=== PATIENT | female | born 1980 | race Caucasian/White ===

== ENCOUNTER 2017-02-18 21:50 | Emergency (ER) | payer MEDICAID ==
[~2017-02-18] VITALS: Ht 157.5 cm; Wt 65.0 kg
[2017-02-18 23:23] VITALS: BP 112/58
[2017-02-18] MEDS ORDERED: ACETAMINOPHEN 325MG TABLET PO ONE (23:45)
[2017-02-18 23:56] LABS: EOSINOPHILS % 2.8 % (0.0-5.0); HEMATOCRIT. 37.1 % (36.0-48.0); HEMOGLOBIN. 12.6 g/dL (12.0-16.0); LYMPHOCYTES % 38.5 % (20.0-50.0); MEAN CORPUSCULAR HEMOGLOBIN 32.1 pg (28.0-32.0); MEAN CORPUSCULAR HGB CONC 34.1 g/dL (31.0-37.0); MEAN PLATELET VOLUME 7.6 fl (7.4-10.4); MONOCYTES % 7.5 % (2.0-8.0); NEUTROPHILS % 50.2 % (40.0-76.0); PLATELET 301 x1000/uL (130-400); RED BLOOD CELL COUNT 3.94 mill/uL (4.2-5.4); RED CELL DISTRIBUTION WIDTH 12.8 % (11.6-14.6); WHITE BLOOD COUNT 7.9 x1000/uL (4.5-11.0)
[2017-02-19 00:12] LABS: ALANINE AMINOTRANSFERASE 23 IU/L (13-61); ANION GAP 12; CALCIUM 8.6 mg/dL (8.5-10.1); CARBON DIOXIDE 27 mEq/L (21-32); CHLORIDE 107 mEq/L (98-107); INDEX HEMOLYSI 1 (1-3); INDEX ICTERIC 1 (1-4); INDEX LIPEMIC 1 (1-3); LIPASE 195 IU/L (73-393); UREA NITROGEN BLOOD 7 mg/dL (7-21); eGFR > 60 mL/min (>60)
[2017-02-19 00:20] LABS: GLUCOSE URINE NEGATIVE (NEGATIVE); KETONES URINE NEGATIVE (NEGATIVE); LEUKOCYTE ESTERASE URINE NEGATIVE (NEGATIVE); NITRITE URINE NEGATIVE (NEGATIVE); OCCULT BLOOD URINE NEGATIVE (NEGATIVE); PROTEIN URINE NEGATIVE (NEGATIVE); SPECIFIC GRAVITY URINE 1.006 (1.005-1.030)
[2017-02-19 00:21] LABS: HCG SCREEN NEGATIVE
[2017-02-19 00:22] LABS: CLARITY URINE CLEAR (CLEAR); COLOR URINE YELLOW (YELLOW)
[2017-02-19] MEDS ORDERED: HYDROCODONE/ACETAMINOPHEN 5/325MG TABLET PO ONE (01:30)
[2017-02-19] MEDS ORDERED: TRAMADOL 50MG TABLET PO ONE (01:45)
[2017-02-19] MEDS ORDERED: CYCLOBENZAPRINE 10MG TABLET PO ONE (01:45)
== END 2017-02-19 02:37 | disposition home or self-care (01) ==
LOC: ER 21:52
DX: K80.20 Calculus of gallbladder without cholecystitis without obstruction (principal); R51 Headache; R14.0 Abdominal distension (gaseous); M54.5 Low back pain; M54.2 Cervicalgia; F17.200 Nicotine dependence, unspecified, uncomplicated; Z98.890 Other specified postprocedural states
CPT/HCPCS: 36415; 70450; 76700; 80053; 81003; 83690; 84703; 85025; 99285

== ENCOUNTER 2017-04-28 21:48 | Emergency (ER) | payer MEDICAID ==
[~2017-04-28] VITALS: Ht 157.5 cm; Wt 68.0 kg
[2017-04-29] MEDS ORDERED: KETOROLAC 30MG/ML VIAL IM ONE (03:00)
[2017-04-29 04:00] VITALS: BP 96/54
== END 2017-04-29 05:10 | disposition home or self-care (01) ==
LOC: ER 21:48
DX: S13.9XXA Sprain of joints and ligaments of unspecified parts of neck, initial encounter (principal); F17.200 Nicotine dependence, unspecified, uncomplicated; Z88.0 Allergy status to penicillin; V89.2XXA Person injured in unspecified motor-vehicle accident, traffic, initial encounter; Y93.89 Activity, other specified; Y92.89 Other specified places as the place of occurrence of the external cause; Y99.8 Other external cause status
CPT/HCPCS: 72040; 72100; 81025; 96372; 99284; J1885; Z7610

== ENCOUNTER 2018-03-03 18:36 | Emergency (ER) | payer MEDICAID ==
[~2018-03-03] VITALS: Ht 162.6 cm; Wt 71.0 kg
[2018-03-03 20:30] LABS: CLARITY URINE CLEAR (CLEAR); COLOR URINE YELLOW (YELLOW); KETONES URINE NEGATIVE (NEGATIVE); LEUKOCYTE ESTERASE URINE NEGATIVE (NEGATIVE); NITRITE URINE NEGATIVE (NEGATIVE); OCCULT BLOOD URINE NEGATIVE (NEGATIVE); PH URINE 5.5 (4.5-8.0); PROTEIN URINE NEGATIVE (NEGATIVE); SPECIFIC GRAVITY URINE 1.012 (1.005-1.030); UROBILINOGEN URINE 0.2 E.U./dL (0.2-1.0)
[2018-03-03 21:55] LABS: BASOPHILS % 0.7 % (0.0-2.0); EOSINOPHILS % 3.5 % (0.0-5.0); HEMATOCRIT. 40.3 % (36.0-48.0); HEMOGLOBIN. 13.9 g/dL (12.0-16.0); LYMPHOCYTES % 39.7 % (20.0-50.0); MEAN CORPUSCULAR HEMOGLOBIN 32.9 pg (28.0-32.0); MEAN CORPUSCULAR VOLUME 95.6 fL (81.0-99.0); MEAN PLATELET VOLUME 7.9 fl (7.4-10.4); MONOCYTES % 6.5 % (2.0-8.0); NEUTROPHILS % 49.6 % (40.0-76.0); PLATELET 300 x1000/uL (130-400); RED BLOOD CELL COUNT 4.21 mill/uL (4.2-5.4); RED CELL DISTRIBUTION WIDTH 13.2 % (11.6-14.6)
[2018-03-03 22:00] LABS: CHLORIDE 109 mEq/L (98-107)
[2018-03-03 22:02] LABS: PROTHROMBIN TIME 10.5 sec (9.4-11.6)
[2018-03-03 22:07] LABS: HCG SCREEN NEGATIVE
[2018-03-04] MEDS ORDERED: FAMOTIDINE 20MG TABLET PO ONE (00:45)
[2018-03-04 02:21] VITALS: BP 99/60
== END 2018-03-04 02:30 | disposition home or self-care (01) ==
LOC: ER 20:46
DX: R10.13 Epigastric pain (principal); F17.200 Nicotine dependence, unspecified, uncomplicated; Z88.0 Allergy status to penicillin
CPT/HCPCS: 36415; 76700; 80053; 81003; 81025; 83690; 84703; 85025; 85610; 99285; Z7610

== ENCOUNTER 2019-01-22 12:52 | Emergency (ER) | payer MEDICAID, OTHER ==
[~2019-01-22] VITALS: Ht 157.5 cm; Wt 63.0 kg
[2019-01-22] MEDS ORDERED: HYDROCODONE/ACETAMINOPHEN 5/325MG TABLET PO ONE (13:30)
[2019-01-22 13:33] VITALS: BP 126/69
== END 2019-01-22 14:15 | disposition home or self-care (01) ==
LOC: ER 12:52
DX: S46.091A Other injury of muscle(s) and tendon(s) of the rotator cuff of right shoulder, initial encounter (principal); F17.210 Nicotine dependence, cigarettes, uncomplicated; Z98.890 Other specified postprocedural states; Z88.0 Allergy status to penicillin; X58.XXXA Exposure to other specified factors, initial encounter; Y93.89 Activity, other specified; Y92.89 Other specified places as the place of occurrence of the external cause; Y99.8 Other external cause status
CPT/HCPCS: 99282; A4565